=== PATIENT | female | born 1960 | race African-American/Black ===

== ENCOUNTER 2020-04-26 07:59 | Outpatient (CLI) | payer OTHER, SELFPAY ==
--- NOTE | ~2020-04-26 | MR_ITS ---
EXAMINATION: MR knee LT wo con DATE: 04/26/2020 09:11 INDICATION: Left knee pain TECHNIQUE: Magnetic resonance imaging (MRI) of the left knee was performed without intravenous contra st. Sequences included coronal PD-weighted FSE, coronal PD-weighted FS FSE, sagittal T2-weighted FSE , sagittal PD-weighted FS FSE and axial PD weighted fat saturated FSE. COMPARISON: None. FINDINGS: Medial compartment: There is a tear of indeterminate morphology, most likely radial with radial component, at the posteri or root of the medial meniscus. Chondral surface regularity likely related to partial thickness fissu ring at the central aspect of the medial tibial plateau. Lateral compartment: Lateral meniscus is normal. Deep chondral fissuring partial-thickness cartilage loss with chondral wu rface regularity along the weightbearing lateral femoral condyle.. Without degenerative subarticular changes along the posterior half of the lateral tibial plateau. Patellofemoral compartment: Partial chondral fissuring involving less than 50% the cartilage thickness at the medial and lateral patellar facets. There is partial thickness cartilage loss likely greater than 50% of the original ca rtilage thickness with chondral surface irregularity at the patellar apical ridge. Deep chondral fiss uring with underlying cortical irregularity at the trochlear groove. Additional less severe chondral fissuring along the medial trochlea and partial-thickness cartilage loss with surface irregularity at the superolateral aspect of the lateral trochlea. Ligaments and tendons: Anterior and posterior cruciate ligaments are normal. The medial collateral ligament and fibular mayda ateral ligament complex are normal. Patellar tendon is normal. Small enthesophytes and minimal enthes opathic ossification at the lateral side of the patellar insertion of the distal quadriceps tendon. T he visualized medial and lateral hamstring tendons as well as the iliotibial band are normal. Fluid: Physiologic amount of fluid in the joint space. No loose osteochondral bodies identified. Small Sams 's cyst. Osseous/other: Bone alignment is normal. There is some likely reactive marrow edema at the posterolateral aspect of the medial tibial plateau near the root of the medial meniscus. No fracture or abnormal marrow replac ing process. IMPRESSION: 1. Tear, likely radial at the posterior root of the medial meniscus. 2. 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 3. Small Sams's cyst. Reviewed, dictated and finalized at location A.
== END 2020-04-26 08:00 | disposition home or self-care (01) ==
DX: M71.22 Synovial cyst of popliteal space [Baker], left knee (principal); M17.12 Unilateral primary osteoarthritis, left knee
CPT/HCPCS: 73721